=== PATIENT | male | born 1935 | race Caucasian/White ===

== ENCOUNTER 2017-09-20 16:37 | Inpatient (IN) | payer OTHER, BC ==
[~2017-09-20] VITALS: Ht 175.3 cm; Wt 79.4 kg
[2017-09-20] VITALS (19 sets, daily range): BP systolic 100–174; BP diastolic 39–69
--- NOTE | ~2017-09-20 | HC ---
[facility] [place] [address] CONSULTATION Name: SHANE FIGUEROA Room #: 244-P [facility] IN M.R.#: [id number] Admission: 09/20/17 Attend Phys: Hector Banda Discharge: Date of : 35 Report #: [id number] THIS REPORT FOR: //name// CC: Shane Holder DO Hector Molina MD DATE OF SERVICE: 09/20/[address] Shane Holder and Dr. Hector Banda. He is also a patient of Dr. Shalom Molina. CHIEF COMPLAINT: This is a very pleasant 82-year-old white male who came to the Emergency Room with complaints of a large volume hematemesis several times. The patient is suffering from dementia and his and he both try to give me the history of the past few hours. Apparently, the patient began vomiting blood this afternoon and was brought to the hospital for further evaluation at about 4:45 p.m. He was stable at the time of arrival and he denies any syncopal events prior to admission. He has a significant past medical history. Patient's states that he has not been eating or behaving as he normally does and has been having a lot of gastroesophageal reflux, hiccups and belching. The patient felt nauseous earlier today and then began vomiting. After the first small amount of hematemesis, the patient's called the ambulance that came immediately and before he got out the door, he had vomited 3 more times large amounts of bloody emesis. Apparently, he has not had any further hematemesis and/or any melena since he has arrived at the Emergency Room. PAST MEDICAL HISTORY: Significant for some significant coronary artery disease. He had a stent placed in 2006 and then again in 2016, he developed another LAD lesion that required a stent. Apparently, there was a problem with the placement of this stent initially and it needed to have another stent placement a little bit later on after he developed an acute coronary syndrome. He has been on Effient ever since then. MEDICATIONS: He also takes metoprolol, lisinopril, takes Regular and NPH insulin, Effient, Lipitor, aspirin. According to the chart, he also takes colchicine for gout and Seroquel. ALLERGIES: No known drug allergies. PAST MEDICAL HISTORY: Significant for dementia. He has had coronary artery disease and developed acute coronary syndrome and has had a total of 3 coronary [facility] [address] [place] [address] CONSULTATION Name: SHANE FIGUEROA Room #: 244-P [facility] IN [facility]#: [id number] Admission: 09/20/17 Attend Phys: Hector Banda Discharge: Date of : 35 Report #: [id number] stents placed. He has a history of diabetes mellitus, hypertension, hyperlipidemia, arthritis, and gout. SOCIAL HISTORY: He does not smoke. He drinks less than one alcoholic beverage per day. He only drinks perhaps one alcoholic beverage 3-4 times a week and as mentioned, he does not smoke. FAMILY HISTORY: There is no family history of colon polyps, colon cancer, Crohn's disease or ulcerative colitis. REVIEW OF SYSTEMS: He denies any dysphagia or odynophagia, but he does have gastroesophageal reflux recently and his appetite has not been as good. His thinks as well. He has had a lot of hiccups and belching. He denies any history of hiatal hernia or peptic ulcer disease since appetite is decreased. He denies any hematochezia or melena, but he has had hematemesis. His stools have been normal and brown. They have not been black or bloody. He denies any abdominal pain. He has had no further nausea or vomiting at this time. His weight has been stable overall. PHYSICAL EXAMINATION: GENERAL: Reveals a well-developed, well-nourished 82-year-old white male who is in no apparent distress at the time I examined him who is awake, alert, oriented x 4 and cooperative and pleasant to converse with. HEENT: He is normocephalic and atraumatic and anicteric. HEART: Heart rate and rhythm are regular with a normal S1 and S2. LUNGS: Clear bilaterally. ABDOMEN: Soft. Bowel sounds are present in all 4 quadrants. There is no palpable organomegaly or mass. There is no tenderness, rebound or guarding. EXTREMITIES: Warm and dry. No peripheral cyanosis, clubbing or edema. NEUROLOGIC: The patient is somewhat forgetful, but he does remember a lot of his past medical history and is able to tell me quite a bit. His is very helpful in this interview. Neurologically, he appears grossly intact without any lateralizing signs. SIGNIFICANT LABORATORY DATA: Sodium 134, potassium 4.4, chloride 101, CO2 of 16, BUN 67, creatinine 1.8, glucose was 566. Liver enzymes are all normal. Magnesium is a little low at 1.7, albumin 3.2, ammonia is pending. Troponins are normal. INR is 1.1. White blood cell count 16.2, hemoglobin is 10.2, hematocrit 29.3, indices are all normal as is the RDW, platelets are 242,000. Urine shows 3+ glucose, trace ketones, and 2+ blood. There is mucus in the urine and there are a few crystals seen. The patient has a history of gout. CT of the head without contrast shows no acute intracranial abnormalities. There is mild cerebral and cerebellar volume loss, atherosclerosis and mild chronic central white matter microvascular ischemia. There is an old linear infarction extending into the right external capsule without significant change. [facility] [address] [place] [address] CONSULTATION Name: SHANE FIGUEROA Room #: 244-P [facility] IN ..#: [id number] Admission: 09/20/17 Attend Phys: Hector Banda Discharge: Date of : 35 Report #: [id number] IMPRESSION: 1. Acute upper gastrointestinal bleed with hematemesis. Hemoglobin was 10.2 on arrival. 2. History of significant coronary artery disease with coronary artery stents and history of acute coronary syndrome. 3. Cerebrovascular accident seen on CT of the head. 4. Worsening gastroesophageal reflux. 5. Decreased appetite recently. 6. Dementia. 7. Status post left hip replacement. 8. Coronary artery disease with stents. 9. Diabetes mellitus. 10. Hypertension. 11. Hyperlipidemia. 12. Gout with arthritis. 13. 2+ blood in his urine. DISCUSSION AND RECOMMENDATION: We will continue his Protonix drip as ordered in the Emergency Room. We will monitor his H and H q. 6 hours and transfuse if his hemoglobin gets below possibly 7. However, he may not tolerate hemoglobin below 8. We will have to see how he does clinically. If he has no further hematemesis tonight, we will not give him any platelets, but if he does start bleeding again or drops his hemoglobin significantly or becomes unstable in any way, we will proceed with platelet transfusion. I have discussed his case with Dr. Tapia who is on-call for Dr. Shalom Molina and he is in agreement with this approach to the patient's situation. I have placed a Cardiology consult for them tomorrow. We will send urine for culture and sensitivity. We will give him some ice chips, some clear liquids tonight. He will be in ICU. We will hold his Effient and aspirin for now. Thank you very much once again for allowing me to participate in his care, Dr. Holder and Dr. Banda. <ELECTRONICALLY SIGNED> By: Kylee Cahrles DO 09/21/17 0701 2111 0403 Kylee Charles DO /nt
--- NOTE | ~2017-09-20 | EKG ---
[place] [address] [address] [place] [address] ELECTROCARDIOGRAM REPORT Name: SHANE FIGUEROA Room #: 244-P ADM IN M.R.#: [id number] Admission: 09/20/17 Attend Phys: Hector Banda Discharge: Date of : 35 Report #: [id number] THIS REPORT FOR: //name// [facility] ED Test Date: 2017-09-20 Test Time: 16:47:26 Pat Name: SHANE FIGUEROA Department: Room: 244 Gender: M Marketing Intern: LUÍS : 1935 Requested By: Miky Kenney Order Number: [id number] MD: Johnnie Mcdonald Measurements Intervals [place] Rate: 94 P: 66 DC: 149 QRS: 4 QRSD: 93 T: 47 QT: 371 QTc: 464 Interpretive Statements Sinus rhythm Abnormal inferior Q waves Compared to ECG 02/17/2016 07:01:21 Sinus bradycardia no longer present Electronically Signed On 09-21-2017 8:08:36 MACHINE SETTER [employer] by Johnnie Mcdonald [email or web address] <ELECTRONICALLY SIGNED> By: Johnnie Mcdonald MD, [facility] 09/21/17 0808 46 46 Johnnie Mcdonald MD, [facility] /EPI
--- NOTE | ~2017-09-20 | EKG ---
[place] [address] [facility] [place] [address] ELECTROCARDIOGRAM REPORT Name: SHANE FIGUEROA Room #: 244-P ADM IN M.R.#: [id number] Admission: 09/20/17 Attend Phys: Hector Banda Discharge: Date of : 35 Report #: [id number] THIS REPORT FOR: //name// [facility] ED Test Date: 2017-09-20 Test Time: 17:50:14 Pat Name: SHANE FIGUEROA Department: Room: 244 Gender: M [employer] Artistic Director: JESSICA : 1935 Requested By: Kate Brunner Order Number: [id number] MD: Johnnie Mcdonald Measurements Intervals [place] Rate: 87 P: [place]: QRS: 4 QRSD: 112 T: 45 QT: 394 QTc: 474 Interpretive Statements Atrial fibrillation Nonspecific ST segment abnormality Compared to ECG 02/17/2016 07:01:21 Sinus bradycardia no longer present Electronically Signed On 09-21-2017 8:09:39 OUTSIDE RESIDENTIAL SALES PROFESSIONAL by Johnnie Mcdonald [email or web address] <ELECTRONICALLY SIGNED> By: Johnnie Mcdonald MD, [facility] 09/21/17 0809 1750 175 Johnnie Mcdonald MD, FACC /EPI
--- NOTE | ~2017-09-20 | EKG ---
[address] [place] [address] ELECTROCARDIOGRAM REPORT Name: SHANE FIGUEROA Room #: 244- ADM IN M.R.#: [id number] Admission: 09/20/17 Attend Phys: Hector Banda Discharge: Date of : 35 Report #: [id number] THIS REPORT FOR: //name// [facility] Test Date: 2017-09-21 Test Time: 15:19:50 Pat Name: SHANE FIGUEROA Department: Room: 244 Gender: M Insurance Defense Attorney: Marlen CATES : 1935 Requested By: Hector Banda Order Number: [id number] MD: Johnnie Mcdonald Measurements Intervals [place] Rate: 103 P: 50 [place]: 156 QRS: 0 QRSD: 89 T: 57 QT: 360 QTc: 471 Interpretive Statements Sinus tachycardia Borderline repolarization abnormality Compared to ECG 09/21/2017 01:45:06 No significant change was found Electronically Signed On 09-21-2017 17:20:31 GREY INSPECTOR by Johnnie Mcdonald [email or web address] <ELECTRONICALLY SIGNED> By: Johnnie Mcdonald MD, [facility] 09/21/17 1720 1519 1519 Johnnie Mcdonald MD, [facility] /EPI
--- NOTE | ~2017-09-20 | P ---
[facility] [place] [address] [place] [address] PROCEDURE REPORT Name: SHANE FIGUEROA Room #: 353-P [facility] IN ..#: [id number] Admission: 09/20/17 Attend Phys: Hector Banda Discharge: 09/23/17 Date of : 35 Report #: [id number] THIS REPORT FOR: //name// CC: Shane GALDAMEZ DATE OF SERVICE: 09/22/2017 PROCEDURE PERFORMED: Upper endoscopy. HISTORY OF PRESENT ILLNESS: The patient is an 82-year-old male with a history of upper GI bleed, recent hematemesis, was admitted on 09/20/2017. The patient had been on aspirin and Effient, which has now been held. He was transfused 1 unit. His hemoglobin at this time is 7.1. Plan is for upper endoscopy. DESCRIPTION OF PROCEDURE: The risks and benefits of the procedure were explained to the patient, those risks including but not limited to bleeding, perforation, the risk of sedation. His family understood these risks and gave informed consent. Sedation was given using propofol per anesthesia. Next, using a standard FreshTn upper endoscope, the scope was placed in the patient's mouth and advanced under direct vision through the esophagus, stomach and into the second portion of the duodenum. The larynx showed a small nodule on his vocal cord, but otherwise normal. The upper esophagus was normal; however, in the mid and distal esophagus, he had severe grade D erosive esophagitis. There was no active bleeding. Overall, the gastric mucosa was normal. The pylorus was normal and patent. The duodenal bulb, first and second portion were all normal. The scope was then withdrawn and the procedure terminated. The patient tolerated the procedure well. IMPRESSION: 1. Severe grade D erosive esophagitis, likely source of recent upper gastrointestinal bleed. No active bleeding at this time. 2. Otherwise, normal upper endoscopy. RECOMMENDATIONS: 1. We will continue b.i.d. PPI therapy. 2. We will add liquid Carafate for the next 2 weeks. 3. Would recommend repeating upper endoscopy in 2 months' time to rule out the possibility of Pollard's esophagus. [address] [address] PROCEDURE REPORT Name: SHANE FIGUEROA Room #: 353-P [facility] IN M.R.#: [id number] Admission: 09/20/17 Attend Phys: Hector Banda Discharge: 09/23/17 Date of : 35 Report #: [id number] Thank you for allowing me to participate in his care. <ELECTRONICALLY SIGNED> By: Arash Hassan MD 09/23/170 1238 0689 Arash Hassan MD /nt
--- NOTE | ~2017-09-20 | 2DMMODE ---
[facility] [place] [address] 2 D/M-MODE ECHOCARDIOGRAM Name: SHANE FIGUEROA Room #: 244-P ADM IN .R.#: [id number] Admission: 09/20/17 Attend Phys: Hector Hopkins Discharge: Date of : 35 Date of Service: 09/21/17 1219 Report #: [id number] THIS REPORT FOR: //name// APPROVED REPORT Study performed: 09/21/2017 09:46:42 EXAM: Comprehensive 2D, Doppler, and color-flow Echocardiogram Patient Location: ICU Room #: [facility] Status: routine BSA: 1.99 HR: 73 bpm BP: 124/50 mmHg Rhythm: NSR Other Information Study Quality: Adequate Indications Elevated troponin. Hx: CAD, stent, HTN, HLP, DM 2D Dimensions RVDd: 34.67 mm IVSd: 10.92 (7-11mm) LVOT Diam: 22.80 (18-24mm) LVDd: 41.28 mm PWd: 9.81 (7-11mm) Ascending Ao: 36.96 (22-36mm) Aortic Root: 36.17 mm Volumes Left Atrial Volume (Systole) Single Plane 4CH: 50.35 mL Single Plane 2CH: 50.08 mL LA ESV Index: 27.00 mL/m2 Aortic Valve AoV Peak Ranjan.: 2.59 m/s AO Peak Gr.: 26.86 mmHg LVOT Max P.70 mmHg AO Mean Gr.: 16.50 mmHg AO V2 Mean: 1.90 m/s LVOT Max V: 1.19 m/s AO V2 VTI: 50.83 cm KAYLA Vmax: 1.88 cm2 Mitral Valve E/A Ratio: 0.7 MV Decel. Time: 399.56 ms [facility] [address] [place] [address] 2 D/M-MODE ECHOCARDIOGRAM Name: SHANE FIGUEROA Room #: 244-[facility] IN ..#: [id number] Admission: 09/20/17 Attend Phys: Hector Hopkins Discharge: Date of : 35 Date of Service: 09/21/17 1219 Report #: [id number] MV E Max Ranjan.: 0.93 m/s MV A Ranjan.: 1.33 m/s MV PHT: 115.87 ms IVRT: 72.66 ms Pulmonary Valve PV Peak Ranjan.: 1.54 m/s PV Peak Gr.: 9.47 mmHg Pulmonary Vein P Vein S: 0.79 m/s P Vein A: 0.36 m/s P Vein D: 0.44 m/s P Vein A Dur.: 106.1 msec P Vein S/D Ratio: 1.80 Tricuspid Valve RAP Estimate: 5.00 mmHg Left Ventricle The left ventricle is normal size. There is normal LV segmental wall motion. Mild basal septal hypertrophy is present. Left ventricular systolic function is normal. LVEF is 60-65%. Mild diastolic dysfunction is present (impaired relaxation pattern). Right Ventricle The right ventricle is normal size. The right ventricular systolic function is normal. Atria The left atrium size is normal. The right atrium size is normal. Aortic Valve Aortic valve is moderately calcified. Mild aortic regurgitation. There is mild valvular aortic stenosis. Calculated aortic valve area is 1.9 cm2 with maximum pressure gradient of 27 mmHg and mean pressure gradient of 17 mmHg. Mitral Valve Mild mitral annular calcification. Trace mitral regurgitation. No evidence of mitral valve stenosis. Tricuspid Valve The tricuspid valve is normal in structure. There is no tricuspid valve regurgitation noted. Unable to assess PA pressure. Pulmonic Valve The pulmonary valve is normal in structure. Trace pulmonic [facility] [address] [place] [address] 2 D/M-MODE ECHOCARDIOGRAM Name: SHANE FIGUEROA Room #: 244-P [facility] IN [facility]#: [id number] Admission: 09/20/17 Attend Phys: Hector Hopkins Discharge: Date of : 35 Date of Service: 09/21/17 1219 Report #: [id number] regurgitation. Great Vessels The aortic root is normal in size. The ascending aorta is normal in size. IVC is normal in size and collapses >50% with inspiration. Pericardium There is no pericardial effusion. <Conclusion> Left ventricular systolic function is normal. There is normal LV segmental wall motion. LVEF is 60-65%. Mild diastolic dysfunction Aortic valve is moderately calcified. Mild valvular aortic stenosis with a valve area of 1.9 cm2 (peak pressure gradient of 27 mmHg, mean pressure gradient of 17 mmHg). Mild insufficiency Mild mitral annular calcification. Trace mitral regurgitation. Pulmonary artery pressure could not be reliably ascertained There is no pericardial effusion. <ELECTRONICALLY SIGNED> By: Johnnie Mcdonald MD, FACC 09/21/17 121 18 18 Johnnie Mcdonald MD, FACC /INF
--- NOTE | ~2017-09-20 | EKG ---
[address] [place] [address] ELECTROCARDIOGRAM REPORT Name: SHANE FIGUEROA Room #: 244-P ADM IN M.R.#: [id number] Admission: 09/20/17 Attend Phys: Hector Banda Discharge: Date of : 35 Report #: [id number] THIS REPORT FOR: //name// [facility] Test Date: 2017-09-21 Test Time: 01:45:06 Pat Name: SHANE FIGUEROA Department: Room: 244 Gender: M Customer Service Assistant: Aden Powell : 1935 Requested By: Claudette Trinidad Order Number: [id number] MD: Johnnie Mcdonald Measurements Intervals [place] Rate: 103 P: 63 W[place]: 148 QRS: 6 QRSD: 87 T: 257 QT: 335 QTc: 439 Interpretive Statements Sinus tachycardia Nonspecific ST and T wave abnormality Compared to ECG 02/17/2016 07:01:21 No significant change was found Electronically Signed On 09-21-2017 8:14:58 [employer] by Johnnie Mcdonald [email or web address] <ELECTRONICALLY SIGNED> By: Johnnie Mcdonald MD, [facility] 09/21/17 0814 0145 014 Johnnie Mcdonald MD, [facility] /EPI
[~2017-09-20 16:37] MED LIST: AMOXICILLIN 50500 MG PO; ASPIR 8181 MG PO; ASPIR-TRIN325 MG PO; ASPIRIN325 PO; ATORVASTATIN CA40 MG PO; AUGMENTIN 875875 MG PO; COLCHICINE0.6 MG PO; EFFIENT10 MG PO; HUMULIN N100 UNIT/1 SUBQ; HUMULIN R100 UNIT/M SUBQ; KRILL OIL 1,001 EAC1 PO; KRILL OIL500 MG PO; LIPITOR 20 MG T20 M1 PO; LISINOPRIL10 MG PO; LISINOPRIL20 MG PO; METOPROLOL SUCC50 MG PO; NOVOLIN N100 UNIT/1 SUBQ; NOVOLIN R100 UNIT/1 SUBQ; NOVOLOG100 UNIT/1; PREVACID15 MG PO; PREVACID30 MG PO; REGULAR INSULIN SUBQ; SEROQUEL 25 MG25 M1 PO; THERA M PLUS T1 EAC2 PO; TOPROL XL25 MG PO
[2017-09-20 16:58] LABS: ABSOLUTE NEUTROPHILS 12.7 thou/uL (1.4-8.2); BASOPHILS 0.4 % (0.0-2.0); EOSINOPHILS 0.1 % (0.0-3.0); HEMATOCRIT 29.8 % (42.0-52.0); HEMOGLOBIN 10.2 gm/dL (14.0-18.0); LYMPHOCYTES 15.7 % (24.0-44.0); MCH 32.2 pg (26.0-34.0); MCHC 34.2 g/dL (28.0-37.0); MCV 94.2 fL (80.0-100.0); MONOCYTES 5.1 % (1.0-8.0); PLATELET COUNT 242 thou/uL (150-400); POLYS 78.7 % (36.0-66.0); RBC 3.16 mil/uL (4.50-6.00); RDW 13.9 % (10.5-14.5); WBC 16.2 thou/uL (4.0-11.0)
[2017-09-20 17:09] LABS: ANION GAP 17 mmol/L (7-16); BUN 67 mg/dL (7-18); CHLORIDE 101 mmol/L (98-107); CO2 16 mmol/L (21-32); CREATININE 1.8 mg/dL (0.7-1.3); INR 1.1; POTASSIUM 4.4 mmol/L (3.5-5.1); PROTIME 11.5 Seconds (9.3-11.4); SODIUM 134 mmol/L (136-145)
[2017-09-20 17:14] LABS: ALBUMIN 3.2 g/dL (3.4-5.0); LIPASE 214 U/L (73-393); SGOT 13 U/L (15-37); SGPT 23 U/L (30-65); TOTAL BILIRUBIN 0.7 mg/dL (<0.1-1.0); TROPONIN-I < 0.04 ng/mL (<0.06)
[2017-09-20 17:19] LABS: GLUCOSE 566 mg/dL (74-106)
[2017-09-20 18:49] LABS: URINE BILIRUBIN NEGATIVE (Negative); URINE BLOOD 2+ (Negative); URINE CLARITY CLEAR; URINE GLUCOSE-RANDOM* 3+ (Negative); URINE KETONES TRACE (Negative); URINE LEUKOCYTES NEGATIVE (Negative); URINE NITRITE NEGATIVE (Negative); URINE PROTEIN (DIPSTICK) NEGATIVE (Negative); URINE SPECIFIC GRAVITY 1.015 (1.005-1.035); URINE UROBILINOGEN 0.2 E.U./dl (0.2-1.0)
[2017-09-20 18:50] LABS: URINE COLOR STRAW
[2017-09-20 19:09] LABS: BACTERIA None Seen /HPF (None Seen); CRYSTALS None Seen /LPF (None Seen); HYALINE CASTS 0-3 Few /LPF (None Seen); MUCUS 0-3 Light strn/LPF (None Seen); SQUAMOUS 0-3 Few /LPF (0-3); URINE RBC 0-2 Rare /HPF (0-2); URINE WBC 0-5 Rare /HPF (0-5)
[2017-09-20 22:17] LABS: HEMATOCRIT 25.5 % (42.0-52.0); HEMOGLOBIN 8.9 gm/dL (14.0-18.0)
[2017-09-20 22:26] LABS: CALCIUM 8.7 mg/dL (8.5-10.1); CREATININE 1.7 mg/dL (0.7-1.3); POTASSIUM 5.3 mmol/L (3.5-5.1)
[2017-09-21] VITALS (60 sets, daily range): BP systolic 101–164; BP diastolic 48–114
[2017-09-21 04:12] LABS: GLYCOHEMOGLOBIN (HGB A1C) 7.7 % (4.8-5.6)
[2017-09-21 06:26] LABS: HEMATOCRIT 24.8 % (42.0-52.0); HEMOGLOBIN 8.6 gm/dL (14.0-18.0)
[2017-09-21 06:42] LABS: ALBUMIN 3.2 g/dL (3.4-5.0); CALCIUM 8.7 mg/dL (8.5-10.1); CREATININE 1.5 mg/dL (0.7-1.3); MAGNESIUM 1.6 mg/dL (1.8-2.4); PHOSPHORUS 2.7 mg/dL (2.5-4.9); TROPONIN-I 0.27 ng/mL (<0.06)
[2017-09-21 12:04] LABS: HEMATOCRIT 20.8 % (42.0-52.0); HEMOGLOBIN 7.3 gm/dL (14.0-18.0)
[2017-09-21 21:10] LABS: HEMATOCRIT 22.2 % (42.0-52.0); HEMOGLOBIN 7.7 gm/dL (14.0-18.0)
[2017-09-22] VITALS (12 sets, daily range): BP systolic 112–192; BP diastolic 46–87
[2017-09-22 04:58] LABS: HEMATOCRIT 20.4 % (42.0-52.0); HEMOGLOBIN 7.1 gm/dL (14.0-18.0); MCH 31.1 pg (26.0-34.0); RBC 2.29 mil/uL (4.50-6.00); RDW 16.8 % (10.5-14.5)
[2017-09-22 05:02] LABS: MCV 88.9 fL (80.0-100.0)
[2017-09-22 05:27] LABS: ALBUMIN 2.7 g/dL (3.4-5.0); CALCIUM 7.9 mg/dL (8.5-10.1); CREATININE 1.1 mg/dL (0.7-1.3); PHOSPHORUS 1.8 mg/dL (2.5-4.9); POTASSIUM 4.4 mmol/L (3.5-5.1)
[2017-09-23 04:03] VITALS: BP 123/49
[2017-09-23 05:32] LABS: HEMATOCRIT 22.1 % (42.0-52.0); HEMOGLOBIN 7.8 gm/dL (14.0-18.0); MCH 31.4 pg (26.0-34.0); MCHC 35.5 g/dL (28.0-37.0); MCV 88.3 fL (80.0-100.0); RBC 2.5 mil/uL (4.50-6.00); RDW 16.2 % (10.5-14.5)
[2017-09-23 05:36] LABS: PROTIME 10.7 Seconds (9.3-11.4)
[2017-09-23 05:46] LABS: CALCIUM 8.2 mg/dL (8.5-10.1); CREATININE 1.1 mg/dL (0.7-1.3); POTASSIUM 3.8 mmol/L (3.5-5.1); TOTAL BILIRUBIN 0.6 mg/dL (<0.1-1.0); TOTAL PROTEIN 5.7 g/dL (6.4-8.2)
[2017-09-23 07:06] VITALS: BP 154/64
[2017-09-23 07:43] VITALS: BP 125/52
[2017-09-23] MEDS ORDERED: PANTOPRAZOLE SO40 M1 PO (09:15)
[2017-09-23] MEDS ORDERED: CARAFATE 11 GM/10 M1 PO (09:15)
[2017-09-23 09:38] VITALS: BP 130/71
[2018-01-11] MEDS ORDERED: OMEPRAZOLE 20 M20 M1 PO (11:54)
== END 2017-09-23 10:05 | disposition home or self-care (01) | DRG 377 ==
LOC: ER 16:37 → EROBS 17:44 → ICU 17:44 → 3W 09-22 18:13
PROVIDERS: Hospitalist; Physician Assistant
PROC: 30233N1 Transfusion of Nonautologous Red Blood Cells into Peripheral Vein, Percutaneous Approach (ICD-10-PCS; 2017-09-21)
PROC: 0DJ08ZZ Inspection of Upper Intestinal Tract, Via Natural or Artificial Opening Endoscopic (ICD-10-PCS; principal; 2017-09-22)
DX: K92.2 Gastrointestinal hemorrhage, unspecified (principal); N17.0 Acute kidney failure with tubular necrosis; E11.10 Type 2 diabetes mellitus with ketoacidosis without coma; D62 Acute posthemorrhagic anemia; M10.9 Gout, unspecified; I10 Essential (primary) hypertension; K92.0 Hematemesis; E83.42 Hypomagnesemia; I25.10 Atherosclerotic heart disease of native coronary artery without angina pectoris; E78.00 Pure hypercholesterolemia, unspecified; F03.90 Unspecified dementia, unspecified severity, without behavioral disturbance, psychotic disturbance, mood disturbance, and anxiety; E78.5 Hyperlipidemia, unspecified; Z96.642 Presence of left artificial hip joint; K21.0 Gastro-esophageal reflux disease with esophagitis; I70.1 Atherosclerosis of renal artery; Z86.73 Personal history of transient ischemic attack (TIA), and cerebral infarction without residual deficits; Z85.828 Personal history of other malignant neoplasm of skin; Z95.5 Presence of coronary angioplasty implant and graft; Z79.01 Long term (current) use of anticoagulants
CPT/HCPCS: 10078; 10779; 62110

== ENCOUNTER → 2017-11-20 | Outpatient (CLI) | payer OTHER, BC ==
[~2017-11-20] VITALS: Ht 175.3 cm; Wt 83.9 kg
[~2017-11-20] MED LIST changes: +CARAFATE 11 GM/10 M1 PO; +PANTOPRAZOLE SO40 M1 PO
--- NOTE | ~2017-11-20 | P ---
[facility] [place] [address] PROCEDURE REPORT Name: SHANE FIGUEROA Room #: [facility]#: [id number] Admission: 11/20/17 Attend Phys: Arash Garibay Discharge: Date of : 35 Report #: [id number] THIS REPORT FOR: //name// CC: Arash MENDIOLAGELSivan Doyle DATE OF SERVICE: 11/20/2017 PROCEDURE PERFORMED: Upper endoscopy with biopsies. HISTORY OF PRESENT ILLNESS: The patient is an 82-year-old male with a previous history of upper GI bleed, underwent an upper endoscopy by myself on 09/22/2017 showing severe grade D erosive esophagitis. He was placed on b.i.d. PPI therapy and Carafate and the plan was to leave the patient on PPI therapy indefinitely. However, he has not been taking this. He took the Carafate for 2 weeks and discontinued this as well. He denies any dysphagia or significant heartburn. No further hiccups, but he does report increased belching. The plan was for repeat upper endoscopy to rule out the possibly of Pollard's. DESCRIPTION OF PROCEDURE: The risks and benefits of the procedure were explained to the patient, those risks including but not limited to bleeding, perforation, the risk of sedation. He understood these risks and gave informed consent. Sedation was given using propofol per anesthesia. Next, using a standard Passmann upper endoscope, the scope was placed in the patient's mouth and advanced under direct vision through the esophagus, stomach and into the second portion of the duodenum. The larynx was normal in appearance. The upper and mid esophagus was normal. Once again in the distal esophagus, there was severe grade D erosive esophagitis. Several biopsies were obtained at the distal esophagus to rule out the possibility of Pollard's, but again Pollard's could be underneath the esophagitis as well. Upon entering the stomach, a small hiatal hernia was noted. Overall, the gastric mucosa was normal. The pylorus was normal and patent. The duodenal bulb, first and second portion were all normal. The scope was then withdrawn and the procedure terminated. The patient tolerated the procedure well. IMPRESSION: 1. Severe grade D erosive esophagitis. 2. Small hiatal hernia. RECOMMENDATIONS: 1. Await biopsy results. 2. I explained to the patient and his and family today. He needs to stay on b.i.d. PPI therapy indefinitely. [facility] [address] [place] [address] PROCEDURE REPORT Name: SHANE FIGUEROA Room #: [facility]#: [id number] Admission: 11/20/17 Attend Phys: Arash Garibay Discharge: Date of : 35 Report #: [id number] Thank you for allowing me to participate in his care. <ELECTRONICALLY SIGNED> By: Arash Hassan MD 11/21/17 0809 1005 1248 Arash Hassan MD /thor
--- NOTE | ~2017-11-20 | S ---
[facility] [place] [address] SURGICAL PATH RPT PROCEDURE Name: SHANE GONZALEZ Room #: REG [facility] M..#: [id number] Admission: 11/20/17 Date of : 35 Discharge: Report #: [id number] Path Case #: [id number] PATHOLOGY REPORT COLLECTION DATE: 11/20/2017 RECEIVED DATE: 11/20/2017 SUBMITTING PHYS: Dr. Arash Hassan OTHER PHYS: Dr. Shane Holder SPECIMEN(S) RECEIVED: A.Bx distal esophagus * * * * * * * * * * * * FINAL DIAGNOSIS: "BX distal esophagus", biopsy: - Esophageal squamous mucosa and gastric cardia-type mucosa with reactive changes including foveolar hyperplasia, edema, and acute and chronic inflammation; no intestinal metaplasia or dysplasia seen. (CLW:temo; 11/21/2017) PATHOLOGIST: Omaira Houston M.D. REPORT ELECTRONICALLY SIGNED BY: Omaira Houston M.D. DATE/TIME: 11/21/2017 22:28 * * * * * * * * * * * * GROSS PATHOLOGY: The specimen is received in formalin, labeled "Shane Gonzalez and biopsy distal esophagus rule out Pollard's", are two asher-muñoz soft tissues measuring 0.3 cm in greatest dimension each, entirely submitted in A1. (SWS; 11/20/2017) CLINICAL HISTORY: Esophagitis INITIAL CPT CODE(S): A; 66960 Professional services performed by [facility] at [facility] [address] [place] [address] Technical services performed by [facility] at [address] [place] [address], [address] [address]. [facility] [address] [place] [address] SURGICAL PATH RPT PROCEDURE Name: SHANE GONZALEZ Room #: REG [facility]#: [id number] Admission: 11/20/17 Date of : 35 Discharge: Report #: [id number] Path Case #: [id number] [facility] [address] [address] PHONE: [phone] DIRECTOR: Jeff Brandon M.D. * * * END OF REPORT * * *
== END | disposition home or self-care (01) ==
LOC: GI 07:52
DX: K22.10 Ulcer of esophagus without bleeding (principal); K44.9 Diaphragmatic hernia without obstruction or gangrene; G30.9 Alzheimer's disease, unspecified; F02.80 Dementia in other diseases classified elsewhere, unspecified severity, without behavioral disturbance, psychotic disturbance, mood disturbance, and anxiety; I10 Essential (primary) hypertension; Z95.5 Presence of coronary angioplasty implant and graft; K21.9 Gastro-esophageal reflux disease without esophagitis; E11.9 Type 2 diabetes mellitus without complications; Z86.73 Personal history of transient ischemic attack (TIA), and cerebral infarction without residual deficits; E78.5 Hyperlipidemia, unspecified
CPT/HCPCS: 62110; 62900

== ENCOUNTER → 2018-01-12 | Outpatient (CLI) | payer OTHER, BC ==
[~2018-01-12] VITALS: Ht 177.8 cm; Wt 81.6 kg
[~2018-01-12] MED LIST changes: +OMEPRAZOLE 20 M20 M1 PO
--- NOTE | ~2018-01-12 | P ---
[facility] [place] [address] PROCEDURE REPORT Name: SHANE FIGUEROA Room #: REG [facility]#: [id number] Admission: 01/12/18 Attend Phys: Arash Garibay Discharge: Date of : 35 Report #: [id number] THIS REPORT FOR: //name// CC: Arash Holder DATE OF SERVICE: 01/12/2018 PROCEDURE PERFORMED: Upper endoscopy with biopsies. HISTORY OF PRESENT ILLNESS: The patient is an 82-year-old male with a previous history of upper GI bleed, underwent an upper endoscopy by myself on 09/22/2017, showing severe grade D erosive esophagitis. He was placed on b.i.d. PPI therapy and Carafate and the plan was to leave the patient on PPI therapy indefinitely. He then had a repeat upper endoscopy on 11/20/2017. Unfortunately, the patient was not taking any PPI at that time. Repeat upper endoscopy showed again severe grade D erosive esophagitis and a small hiatal hernia. The patient has now been on Prilosec 20 mg on a daily basis. He denies any dysphagia. The plan is for repeat upper endoscopy to rule out the possibility of Pollard's esophagus. DESCRIPTION OF PROCEDURE: The risks and benefits of the procedure were explained to the patient and his , those risks including but not limited to bleeding, perforation, the risk of sedation. They understood these risks and gave informed consent. Sedation was given using propofol per anesthesia. Next, using a standard Olympus upper endoscope, the scope was placed in the patient's mouth and advanced under direct vision through the esophagus, stomach and into the second portion of the duodenum. On the right vocal cord, there appears to be a small lesion. The upper and mid esophagus was normal. In the distal esophagus, no further esophagitis was noted; however, there does appear to be a short segment of Pollard's, therefore, biopsies were obtained. No stricture was noted. Upon entering the stomach, a small hiatal hernia was once again noted. Overall, the gastric mucosa was normal. The pylorus was normal and patent. The duodenal bulb, first and second portion were all normal. The scope was then withdrawn and the procedure terminated. The patient tolerated the procedure well. IMPRESSION: 1. Small lesion on the right vocal cord, recommend ENT evaluation. 2. 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 3. Small hiatal hernia. 4. Otherwise, normal upper endoscopy. RECOMMENDATIONS: 1. Await biopsy results. 2. Continue daily PPI therapy indefinitely. 3. Recommend ENT evaluation for vocal cord lesion. [address] [address] PROCEDURE REPORT Name: SHANE FIGUEROA Room #: REG [facility]#: [id number] Admission: 01/12/18 Attend Phys: Arash Garibay Discharge: Date of : 35 Report #: [id number] Thank you for allowing me to participate in his care. <ELECTRONICALLY SIGNED> By: Arash Hassan MD 01/13/18 0931 0902 1004 Arash Hassan MD /nt
--- NOTE | ~2018-01-12 | PATH ---
[facility] [address] [place] [address] PATHOLOGY RPT PROCEDURE Name: SHANE GONZALEZ Room #: REG [facility] Rogers.#: [id number] Admission: 01/12/18 Date of : 35 Discharge: Report #: [id number] Path Case #: [id number] [facility] Accession Number: [id number] . 01 Material submitted: . BX DISTAL SONALI R/O BARRETTS . 01 Clinical history: . 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 02 Diagnosis: Gastroesophageal mucosa, distal esophagus, rule out Pollard's, endoscopic biopsy: - Gastric fundic-type mucosa with moderate chronic inflammation. - Negative for intestinal metaplasia or dysplasia. - Squamous mucosa with mild esophagitis. (IUV:mgr; 01/15/18) QRQ/01/15/2018 . 02 Electronically signed: . Mimi Dickson MD, Pathologist NPI- [id number] . 01 Gross description: . The specimen is received in formalin, labeled "Shane Gonzalez, BX distal esophagus" and consists of 2 translucent fragments of asher soft tissue measuring 0.4 x 0.3 x 0.1 cm and 0.3 x 0.2 x 0.1 cm. They are entirely submitted in A1. (SDY; 01/12/2018) SYU/SYU . 02 Pathologist provided ICD-10: K20.8 . 02 CPT . 583022 Performed at: [address], [place] [id number] MD Toño Siu MD Phone: [phone] Performed at: [address] [id number] MD Mimi Dickson MD Phone: [phone]
== END | disposition home or self-care (01) ==
LOC: GI 07:37
DX: K21.0 Gastro-esophageal reflux disease with esophagitis (principal); K44.9 Diaphragmatic hernia without obstruction or gangrene; J38.3 Other diseases of vocal cords; I10 Essential (primary) hypertension; E11.9 Type 2 diabetes mellitus without complications; E78.5 Hyperlipidemia, unspecified; M10.9 Gout, unspecified; F02.80 Dementia in other diseases classified elsewhere, unspecified severity, without behavioral disturbance, psychotic disturbance, mood disturbance, and anxiety; G30.9 Alzheimer's disease, unspecified; Z95.5 Presence of coronary angioplasty implant and graft; Z85.828 Personal history of other malignant neoplasm of skin; Z79.4 Long term (current) use of insulin; Z96.642 Presence of left artificial hip joint; Z98.890 Other specified postprocedural states; Z86.73 Personal history of transient ischemic attack (TIA), and cerebral infarction without residual deficits; Z79.82 Long term (current) use of aspirin
CPT/HCPCS: 62110; 62900

== ENCOUNTER → 2019-12-24 | Outpatient (CLI) | payer OTHER, BC | LOC: SJCVCIMAG 09:06 | DX: I08.2 Rheumatic disorders of both aortic and tricuspid valves (principal); I11.9 Hypertensive heart disease without heart failure; I25.10 Atherosclerotic heart disease of native coronary artery without angina pectoris; E11.9 Type 2 diabetes mellitus without complications; I70.1 Atherosclerosis of renal artery; E78.00 Pure hypercholesterolemia, unspecified; E78.5 Hyperlipidemia, unspecified; F03.90 Unspecified dementia, unspecified severity, without behavioral disturbance, psychotic disturbance, mood disturbance, and anxiety ==

== ENCOUNTER 2020-05-19 16:35 | Inpatient (IN) | payer OTHER, BC ==
[~2020-05-19] VITALS: Ht 172.7 cm; Wt 76.0 kg
[2020-05-19 16:35] VITALS: BP 136/71
--- NOTE | 2020-05-19 17:01 | NUR ---
CHARAN CLYDE [phone]
[2020-05-19 17:03] LABS: URINE BILIRUBIN NEGATIVE (Negative); URINE BLOOD NEGATIVE (Negative); URINE CLARITY CLEAR; URINE COLOR YELLOW; URINE GLUCOSE-RANDOM* NEGATIVE (Negative); URINE KETONES NEGATIVE (Negative); URINE LEUKOCYTES-REFLEX NEGATIVE (Negative); URINE NITRITE-REFLEX NEGATIVE (Negative); URINE PROTEIN (DIPSTICK) TRACE (Negative); URINE UROBILINOGEN 0.2 E.U./dl (0.2-1.0)
[2020-05-19 17:12] LABS: ABSOLUTE NEUTROPHILS 4.3 thou/uL (1.4-8.2); BASOPHILS 0.7 % (0.0-2.0); EOSINOPHILS 1.7 % (0.0-3.0); HEMATOCRIT 37.2 % (42.0-52.0); HEMOGLOBIN 13.1 gm/dL (14.0-18.0); LYMPHOCYTES 34.3 % (24.0-44.0); MCH 32.4 pg (26.0-34.0); MCHC 35.3 g/dL (28.0-37.0); MCV 91.8 fL (80.0-100.0); PLATELET COUNT 271 thou/uL (150-400); POLYS 56.3 % (36.0-66.0); RBC 4.05 mil/uL (4.50-6.00); RDW 13.6 % (10.5-14.5); WBC 7.6 thou/uL (4.0-11.0)
[2020-05-19 17:22] LABS: CALCIUM 9.2 mg/dL (8.5-10.1); CREATININE 1.1 mg/dL (0.7-1.3); POTASSIUM 4.2 mmol/L (3.5-5.1)
[2020-05-19] MEDS ORDERED: OMEPRAZOLE 20 M20 M1 PO (17:32)
[2020-05-19 17:54] LABS: ALBUMIN 3.8 g/dL (3.4-5.0); DIRECT BILIRUBIN 0.1 mg/dL (<0.1-0.2); TOTAL BILIRUBIN 0.5 mg/dL (0.2-1.0)
--- NOTE | 2020-05-20 07:43 | EKG ---
[facility] [place] [address] ELECTROCARDIOGRAM REPORT Name: SHANE FIGUEROA Room #: REG [facility].#: [id number] Admission: 05/19/20 Attend Phys: Discharge: Date of : 35 Report #: [id number] THIS REPORT FOR: cc: Shane Holder James A. DO Lundgren, Craig H. MD [facility] ~ THIS REPORT FOR: //name// [facility] ED Test Date: 2020-05-19 Test Time: 18:23:41 Pat Name: SHANE FIGUEROA Department: Room: Gender: Vacuum Technician: [facility] : 1935 Requested By: Dom Delgado Order Number: [id number] MD: Johnnie Mcdonald Measurements Intervals Reeder Rate: 76 P: 10 PA: 166 QRS: -30 QRSD: 82 T: 2 QT: 384 QTc: 432 Interpretive Statements Sinus rhythm Atrial premature complex Left axis deviation Compared to ECG 09/21/2017 15:19:50 Atrial premature complex(es) now present Sinus tachycardia no longer present Electronically Signed On 05-20-2020 7:43:11 CDT by Johnnie Mcdonald [email or web address] <ELECTRONICALLY SIGNED> By: Johnnie Mcdonald MD, [facility] 05/20/20 0743 1823 1823 Johnnie Mcdonald MD, [facility] /EPI
[2020-05-20 10:03] VITALS: BP 122/48
[2020-05-20 17:50] VITALS: BP 120/69
--- NOTE | 2020-05-20 18:00 | NUR ---
Admission Note: Pt. arrived on unit 1010 w/no suitcase-just clothes he was wearing and personal valuables sent to the safe including $120.00, gold colored wedding band, wallet, Health insurance cards, cards for stents in heart, card with left hip replacement information. Patient provided little admission. Mosst of the information came from the nursing report sheet from ER and from his daughter. Admitting diagnosis: Major neurocognitive D/O. He was to go to a assisted and be with his . He became combative/belligerent and threatened to kill his daughter prior to coming to the ER. He tested negative for Covid. He was told he was brought here for medication adjustment. Admission process was long/protracted due to many needy patient needs. His guardian is his daughter Kelsie De Guzman #[phone]-who lives about an hour away. She was contacted for consents and prior medical/surgical information. She relays the best source is Dr. Holder from [facility]. Per ER nurse SHILPI. However patient said Penicillins. He received Geodon X 2 due to combativeness. He is on Insulin for DM, gout, HTN, Cardiac Stents, CVA, GERD, Left Hip replacement. Two years ago he had MRSA. Per ER he was up ad niharika and steady on his feet. Alert/oriented to self. Denies SI/HI/AH/VH. Dtr. reports he oversleeps. Dtr. says he has neglected his health for quite sometime--doesn't want hearing aides yet needs them. Self care deficit evidenced by thick, crusty old skin/dirt between his toes. He says he showers every day. His toenails are long/crooked/yellowed. he does not know know all his meds, nor did he have a list with him in his wallet. Patient intends to go to [place] or the [facility] instead of going into the assisted. Note the of 40 some years also has Dementia and may have very limited historian value. Should she need to be questioned the Guardian Kelsie suggests calling the niece to [facility] Loya for more information. Thus far patient has not been combative, belligerent, or acted out in any way. He does not want anyone telling him what to do. He is a retired [employer]. He does not see the advantage of getting the help, meals, socialization, activities that he and his could partake in at a nursing care facility. He was continent, though wanted nurse to walk with him to the bathroom. Having the bed in low position is a bit difficult for him to get up from. When the commode was moved closer to him he used it to push down on and get up from the bed. When changed into his Yellow t-shirt and socks and brief, his underwear had brown stain in it. He self-fed dinner. No c/o pain.
[2020-05-20 19:53] VITALS: BP 121/66
[2020-05-20] MEDS ORDERED: VITAMIN D325 MC1 PO (23:40)
[2020-05-20] MEDS ORDERED: VITAMIN B-121000 MC2 PO (23:42)
[2020-05-20] MEDS ORDERED: LISINOPRIL2.5 MG PO (23:44)
[2020-05-20] MEDS ORDERED: OMEPRAZOLE 20 M20 M1 PO (23:45)
--- NOTE | 2020-05-20 23:55 | NUR ---
Care of patient assumed at 1915: Patient sleeping in bed at start of shift. Patient [place] which appeared to frustrate him. Patient would throw his hands up in the air and say "oh, I don't know" several times during assessment. Alert and oriented to person and place. Pleasantly confused. Took HS medication without difficulty. Was able to remember that he was receiving insulin and blood sugar checks. Patient educated on fall risk precautions and has been compliant with using call álvarez before getting out of bed. Ate 100% HS snack. Denied pain and discomfort. Denies SI/HI/AH/VH. Patient was able to report that he was in the hospital but was not sure why. Patient reported that he was tired and politely asked if he could "just go to sleep". Oriented patient that it was night time which he appeared to be happy about. No combative or aggressive behaviors observed. Patient was able to fall asleep without difficulty and is resting quietly at this time.
[2020-05-21 07:41] VITALS: BP 122/84
--- NOTE | 2020-05-21 18:08 | NUR ---
Alert and orientated to person and situation but not to day and place. Denies SI/HI. Spent all day in room with exception of meals. Reg gait. Calm and compliant. Breath sounds clear. Reg HR auscultated. Color pink with brisk capillary refill and palpable peripheral pulses. Independent with voiding. Active bowel sounds over soft, rounded abdomen. Brown stool per toilet. Currently resting in room.
[2020-05-21 19:58] VITALS: BP 113/46
[2020-05-21 22:23] VITALS: BP 113/46
--- NOTE | 2020-05-22 03:10 | NUR ---
Assumed care of patient this pm shift. Patient in good spirits, calm and cooperative. Patient denies pain. Patient denies hi/si. Patient is alert and oriented x2 person, place. Patient takes medications whole as scheduled. Patients vital signs stable. No acute distress noted. Patient is considered a falls risk and has on a yellow shirt. We will continue to monitor per hospital policy.
[2020-05-22 07:33] VITALS: BP 143/54
--- NOTE | 2020-05-22 13:05 | H ---
[facility] [place] [address] [place] [address] HISTORY AND PHYSICAL Name: SHANE FIGUEROA Room #: 526B-B ADM IN M.R.#: [id number] Admission: 05/20/20 Attend Phys: Fitz Otoole DO Discharge: Date of : 35 Report #: [id number] THIS REPORT FOR: cc: Shane Holder James A. DO Kerstein, Andrew H. DO ~ CC: Fitz Holder DATE OF SERVICE: 05/20/2020 INPATIENT PSYCHIATRIC EVALUATION ATTENDING PSYCHIATRIST: Fitz Otoole DO. EMBOSSING CALENDER OPERATOR: Rasta Klein MD REASON FOR ADMISSION: Dementia with behavioral disturbance. SOURCES OF INFORMATION: Interview with his daughter and guardian; Kelsie, interview with the patient at bedside, Emergency Room records. HISTORY OF PRESENT ILLNESS: This is an 85-year-old male, retired commercial credit officer with a known history of major neurocognitive disorder. The patient was brought to the hospital by family after he refused to move out of his residence. His has been caring for him and moved to penitentiary environment. The patient refused to move, has a known history of dementia. Over the last day or two, the patient has made threatening remarks that he would harm family members including his daughter, who is now [facility] reported guardian. The patient in the ER stated he is not sure why he is here and is confused. He could not tell what year it is; the date; could not tell me what month it is. He does think Marcos Subramanian is the current Ballet Soloist. He did not know who the relative was that accompanied him to the ED. He stated that he lives with his at their home, refused to go to any sort of facility; states he is not sick. Family is unsure if the patient has been taking any medications appropriate at home. ADDITIONAL INFORMATION: Past medical history includes insulin-dependent diabetes mellitus, gout, hypertension, GERD, hyperlipidemia, history of MRSA infection. Cerebrovascular accident in 2016, left total hip replacement, multiple colonoscopies, EGDs. PAST SURGICAL HISTORY: Includes posterior neck cancer excised, cardiac stent in 2006, 2016 and 2018. PSYCHIATRIC HISTORY: Includes Alzheimer's dementia. [facility] [address] [place] [address] HISTORY AND PHYSICAL Name: SHANE FIGUEROA Room #: 526B-B ADM IN M.R.#: [id number] Admission: 05/20/20 Attend Phys: Fitz Otoole DO Discharge: Date of : 35 Report #: [id number] MEDICATIONS: Lipitor 40 mg p.o. daily, aspirin 81 mg p.o. daily. His insulin regimen does not appear to be reliable as it has 25 units of NPH in the morning and 12 units in the evening and Regular insulin 10 mg 3 times a day; colchicine p.r.n., lisinopril and omeprazole. I spoke with his daughter, Kelsie and she was not sure of his regimen, he has been compliant with. ALLERGIES: No known allergies. SOCIAL HISTORY: Denied tobacco, alcohol or recreational drug use history. REVIEW OF SYSTEMS: Not being able to be reliably obtained, although he denied being in pain. Weight 84.37 kilos, BMI 27.5. LABORATORY DATA: EKG was done, which showed a rate of 76 beats per minute; occasional premature atrial contractions, left axis. His QTc 432 ms . W[place] interval 166 milliseconds, QT 384, QTc is 432 milliseconds. PHYSICAL EXAMINATION: VITAL SIGNS: Today, pulse 90, respirations 16, BP 122/48, O2 sat 99%. The patient was afebrile. LABORATORIES: From the ER, hematology: H and H 13.1 and 37.2, white count is 7.6, platelet count 271. Chemistry: Sodium 136, potassium 4.2, chloride 103, bicarbonate 22, anion gap 11, BUN 17, creatinine 1.1, estimated GFR 64, glucose 229, 1705 yesterday. Repeat glucose 1131, today 239. Calcium 9.2, total bilirubin is 0.5, direct bilirubin 0.1, AST 15, ALT 13, alkaline phosphatase 197, total protein 8.2, albumin 3.8. Urinalysis showed trace protein, otherwise negative. COVID-19 PCR, neurology was negative for self and antigen of course was negative. MUSCULOSKELETAL: Normal gait and station. MENTAL STATUS EXAMINATION: This is a well-developed, somewhat frail-appearing, male, appearing at least stated age. Attention fair. Concentration limited. Speech: Normal rate, rhythm and tone. Thought process: Linear and goal directed. Thought content: Relative poverty of thought. No psychomotor agitation. No psychomotor retardation. Denied suicidal intent or plan. Denied homicidal intent or plan. Denied hopelessness, helplessness. Denied auditory, visual or tactile hallucinations. Denied flashbacks, nightmares. Memory not formally tested today, noted to be impaired. Insight limited. Judgment impaired. Fund of knowledge below average. [facility] [address] [place] [address] HISTORY AND PHYSICAL Name: SHANE FIGUEROA Room #: 526B-B ADM IN M.R.#: [id number] Admission: 05/20/20 Attend Phys: Fitz Otoole DO Discharge: Date of : 35 Report #: [id number] ADDITIONAL HISTORY: Born and raised in [place], [place]; bachelor's degree. 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. He has 3 biological kids; 1 adopted kid; his guardian is his daughter, Kelsie. He denies head injuries. Denies seizures. He denied a history of combat service in the . He was there after the [place] war. FORMULATION: An 85-year-old male, readmitted with major neurocognitive disorder, most likely Alzheimer's with possibly some vascular contribution. Dr. Klein noted he had a heavy remote alcohol use. PRIMARY CARE PHYSICIAN: Not known at the moment. 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 Number of medical comorbidities including the diabetes mellitus, hypertension, history of coronary artery disease, gout. PLAN: Evaluate, stabilize, and obtain collateral. Regarding the patient's medications, I spoke with the daughter about initiation of Depakote and antipsychotic. I think that is advisable at this point. I will go ahead and start him on Haldol 2.5 mg twice a day. I actually thought I had started him on Depakote ER, but it looks like I did not order it yet, so I will order that now to begin this evening. ESTIMATED LENGTH OF STAY: 10-14 days. STRENGTHS: He is insured, has a guardian, family participation. WEAKNESSES: Advancing age, having a major neurocognitive disorder, multiple morbidities. At least 45 minutes spent on case today. <ELECTRONICALLY SIGNED> By: Fitz Otoole DO 05/22/20 1305 1615 1727 Fitz Otoole DO /nt
--- NOTE | 2020-05-22 14:22 | NUR ---
PATIENT WAS IN BED ASLEEP WHEN CARE ASSUMED. PATIENT IS ALERT, AND ORIENTED X 1-2, HE IS FORGETFUL, AND CONFUSED AT TIMES, FINDS IT DIFFICULT TO LOCATE HIS ROOM AT TIMES. PATIENT AMBULATES WITH UNSTEADY GAIT, CHOOSE NOT TO USE WALKER FOR AMBULATION. BLOOD SUGAR BEFORE BREAKFAST WAS 121, NO INSULIN GIVEN, AT LUNCH, BLOOD SUGAR WAS 282, 6 UNITS INSULIN GIVEN PER SLIDING SCALE ORDER, NOS SIGN AND SYMPTOMS OF HYPER/HYPOGLYCEMIA NOTED. PATIENT TOOK ALL MEDICATION WHOLE WITHOUT DIFFICULTY. PATIENT IS EATING MEALS, AND DRINKING FLUID WELL. PATIENT DENIES SUICIDAL/HOMICIDAL IDEATION. NO AGITATION OR AGGRESSIVE BEHAVIOR NOTED. PATIENT REQUIRES CONSTANT REDIRECTION. AFFECT IS FLAT, AND BLUNTED, MOOD IS DEPRESSED. NO SIGN OF ACUTE DISTRESS NOTED AT THIS TIME, WILL CONTINUE TO REDIRECT, AND MONITOR FOR SAFETY.
--- NOTE | 2020-05-22 16:19 | NUR ---
JOESPH and Dr. Otoole spoke to Michelle regarding discharge recommendations for patient. Dr. Otoole recommends pt be placed in [place] memory care. Dtr reports pt's (her stepmother) also has dementia (not as severe) and recently moved to [place] at [facility]. She will look into pt and his being able to be placed together there. Michelle will notify JOESPH with her findings. Michelle informed that she is DPOA for healthcare and her niece, Naomi Guzmán is DPOA for financial decisions [phone]. JOESPH later received a call from Naomi wanting to confirm the information she was provided by her aunt Michelle. She states the family is pretty emotional right now and she is trying to direct family conversations related to the decisions that need to be made for patient and his . JOESPH will continue to follow during hospitalization.
--- NOTE | 2020-05-22 17:45 | NUR ---
JOESPH informed Michelle that two pts on the unit tested positive for COVID and have been evacuated from the unit. JOESPH further explained pt tested negative and will continue to be monitored until discharge. Pt will receive another COVID test prior to discharge. Michelle thanked JOESPH and expressed no concern at this time. JOESPH team will continue to follow.
[2020-05-22 19:38] VITALS: BP 140/60
--- NOTE | 2020-05-23 03:33 | NUR ---
Assumed care of pt @ 1900. Pt calm et cooperative this shift. Took medications whole without difficulty. Insulin NPH 10units et Insulin Lispro 3units given for blood sugar of 199 per sliding scale. Ambulates with assistance of walker with slightly unsteady gait. Isolated in room most of shift. VSWNL. Health assessment with no abnormalities other than previously noted. Denies SI/HI/AVH at present time. Currently resting in bed with eyes closed. Will continue to monitor per protocol.
[2020-05-23 07:23] VITALS: BP 132/55
[2020-05-23 08:30] VITALS: BP 132/55
--- NOTE | 2020-05-23 08:40 | NUR ---
PT SITTING IN DINING ROOM EATING BREAKFAST. PT DENIES ANY PAIN. PT TOOK MEDICATION WITHOUT ANY ISSUES. PT USING WALKER THIS AM WITH STAND-BY ASSIST. PT LUNGS CLEAR. PT CALM AND COOROPERATIVE.
--- NOTE | 2020-05-23 12:00 | NUR ---
PT WAS SITTING TO EAT THEN GOT UP AND STARTED WALKING WITH WALKER. PT NEEDED TO USE BATHROOM. PT DIDN'T HAVE A BRIEF ON AND REFUSED TO WEAR ONE. PT HAS BEEN CONT.
--- NOTE | 2020-05-23 15:44 | NUR ---
PT TRYING TO GET OUT FRONT DOOR, ASKED PT WHAT HE WAS DOING. HE SAID HE WAS GETTING TO HIS ROOM. ASSISTED PT TO HIS ROOM. PT VOIDED FIRST AND THEN WENT TO BED, BED ALARM ACTIVATED.
[2020-05-23 19:38] VITALS: BP 109/47
--- NOTE | 2020-05-24 04:20 | NUR ---
Assumed care of pt @ 1900. Pt calm et cooperative this shift. Took medications whole without difficulty. Ambulates with assistance of walker with steady gait. VSWNL. Health assessment with no abnormalities at present time. Isolated in room most of shift. Denies SI/HI/AVH at present time. Currently resting in bed with eyes closed. Will continue to monitor per protocol.
[2020-05-24 07:51] VITALS: BP 127/62
--- NOTE | 2020-05-24 10:15 | NUR ---
ASSUMED CARE AT 0700 THIS MORNING. PT. UP DRESSED AND ON THE UNIT, SITTING IN A CHAIR. HE SAT BY HIMSELF, ISOLATIVE, MOST OF THE TIME. HE WILL INTERACT UPON APPROACH ONLY. HE HAS BEEN SITTING WITH HIS EYES CLOSED AT TIMES. HE ATE WELL AND TOOK HIS MORNING MEDICATIONS WITHOUT PROBLEMS NOTED. NOTED A PREVIOUS NOTE STATING PT. WALKED WITH A WALKER, BUT PT. DENIES NEEDING ONE AND HAS NONE WITH HIM THIS MORNING. WILL MONITOR HIS GAIT FOR STEADINESS. DOES DON A YELLOW T-SHIRT AND SOX THOUGH.
[2020-05-24 10:38] VITALS: BP 127/62
[2020-05-24 19:28] VITALS: BP 112/64
[2020-05-24 21:36] VITALS: BP 112/64
--- NOTE | 2020-05-25 02:56 | NUR ---
Assumed care of patient this pm shift. Patient calm and cooperative in good spirits. Patient denies pain. Patient denies hi/si. Patient is adherent with scheduled meds and takes them whole with thin fluids. Patient is considered a falls risk and has on a yellow shirt. Patient ambulates with a walker. No acute distress noted at this time. Vital signs are stable. Patient is alert and oriented to self and place. We will continue to monitor per hospital policy.
[2020-05-25 07:59] VITALS: BP 128/81
[2020-05-25 14:18] VITALS: BP 128/81
--- NOTE | 2020-05-25 14:26 | NUR ---
ASSUMED CARE AT 0700 IN THE MORNING. PT. WAS IN BED, BUT GOT UP FOR BREAKFAST, ASSISTED BY NURSING STAFF. PT. IS WAKE, ALERT. HE CONTINUES TO BE CONFUSED. HE IS ISOLATIVE TO HIS ROOM BETWEEN MEALS. HE WILL DOES ATTEND GROUPS OFFERED. REVIEWED HIS LAB WITH DR. BALLARD TODAY. TO INCREASE HIS DIVALPROEX DUE TO LAB RESULTS. CALLED FOR UPDATE AND SPOKE WITH THE PATIENT. IS EATING WELL AT MEALS.
[2020-05-25 20:04] VITALS: BP 109/76
[2020-05-25 22:46] VITALS: BP 109/76
--- NOTE | 2020-05-26 01:36 | NUR ---
Assumed care of patient this pm shift. Patient in good spirits, calm and cooperative. Patient denies pain. Patient denies hi/si. Patient takes medications whole with thin fluids. Patient is alert and oriented to self and situation. Patient is considered a falls risk and ambulates with a walker. Patients assessment shows no signs of acute distress. Vital signs stable. Patient did not voice any new concerns this evening. A covid test was done by RN and sent to lab. We will continue to monitor per hospital policy.
[2020-05-26 08:51] VITALS: BP 137/63
--- NOTE | 2020-05-26 13:39 | NUR ---
Pt completed a virtual assessment with Finesse Sethi of [facility]
--- NOTE | 2020-05-26 13:53 | NUR ---
JOESPH spoke with Finesse Sethi at [facility]. They are willing to accept the Pt. Concerns that Finesse had were the sliding scale insulin and the Haldol. Finesse asked if it was possible for the Pt to be on scheduled dose of insulin or go to SNF to get the this issue under control. JOESPH will talk to Dr. Long concerning the matter
--- NOTE | 2020-05-26 16:41 | NUR ---
Assumed care of patient at 0700. Alert and oriented to person. Pleasant when approached. Denies pain or discomfort. No cough. Respirations regular. Breath sounds clear. Remaining in room. Medicvation adherent. No complaints. Remains on Fall precautions. Use of walker encouraged. Up to the bathroom.
[2020-05-26 19:34] VITALS: BP 128/68
--- NOTE | 2020-05-27 05:38 | NUR ---
05-26-20 CARE TRANSFERRED 1930 PT AAOX1, VSS, RR EVEN AND NONLABORED ON RA. PT DENIES ANY PAIN AND SI/HI. PT WAS REPOSITION IN BED FOR COMFORT. DURING MEDICATION ADMIN. PT HAD NO DIFFICULTIES. PT HAS REMAINED CALM AND COOPERATIVE. ZERO S/S OF ACUTE DISTRES NOTED, PT WILL CONTINUE TO BE MONITOR PER [facility] PROTOCOL.
[2020-05-27 14:21] VITALS: BP 132/71
--- NOTE | 2020-05-27 16:42 | NUR ---
SW send referral to [facility] for SNF.
--- NOTE | 2020-05-27 17:32 | NUR ---
Assumed care of patient at 0700. Up in room ad niharika with walker. Remains on Fall precautions. Eating independently. Alert and oriented to person, place situation. Soke wot family on the phone. Smiles easily. Denies pain or discomfort. Pleasant when approached. No complaints.
[2020-05-27 19:30] VITALS: BP 120/57
[2020-05-27 23:48] VITALS: BP 132/71
--- NOTE | 2020-05-28 02:46 | NUR ---
Assumed care of patient this pm shift. Patient in good spirits, pleasantly confused. Patient is alert and oriented to self only. Patients affect mildly blunted. Patient takes medications whole with thin fluids. Patient ambulates via walker and is considered a falls risk. Patients vital signs stable. We will continue to monitor via hospital policy.
[2020-05-28 07:00] VITALS: BP 128/63
[2020-05-28 13:49] LABS: HEMATOCRIT 38.4 % (42.0-52.0); MCH 31.7 pg (26.0-34.0); MCHC 33.9 g/dL (28.0-37.0); MCV 93.4 fL (80.0-100.0); RBC 4.12 mil/uL (4.50-6.00); RDW 13.7 % (10.5-14.5); WBC 3.5 thou/uL (4.0-11.0)
[2020-05-28 13:55] LABS: ALBUMIN 3.4 g/dL (3.4-5.0); CALCIUM 8.9 mg/dL (8.5-10.1); CREATININE 1.4 mg/dL (0.7-1.3); MAGNESIUM 2.1 mg/dL (1.8-2.4); POTASSIUM 4.5 mmol/L (3.5-5.1); TOTAL BILIRUBIN 0.3 mg/dL (0.2-1.0); TOTAL PROTEIN 7.7 g/dL (6.4-8.2)
--- NOTE | 2020-05-28 16:33 | NUR ---
0700 ASSUMED CARE OF PATIENT, PATIENT IN BED AT THAT TIME. PATIENT EATS BREAKFAST IN ROOM, DENIES NEEDS AT THAT TIME. MEDICATION TAKEN CRUSHED IN PUDDING WITHOUT DIFFICULTY. PATIENT AMB TO DAYROOM FOR LUNCH. AT 1400 PATIENT FORGETFUL STATING HE HAS NOT HAD LUNCH YET. PT ATE 25% OF LUNCH. STOVE BOTTOM WORKER OFFERED SNACK, PT REFUSED. PATIENT UP AMB IN CHAVEZ WITH WALKER WITH STEADY GAIT. PATIENT CONFUSED REQUESTING TO GET OUT TO GO HOME. 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 i NEED TO LEAVE NOW". AFTER ATTEMPTING TO ORIENT PATIENT , PATIENT SAY HE WILL JING ALL OF US IN THIS PLACE. PATIENT IS CALM AND OCCATIONALLY RAISES VOICE WHEN WANTING TO LEAVE. PATIENT WAS OBSERVED AT EXIT DOORS ATTEMPTING TO OPEN DOOR. WILL CONTINUE TO OBSERVE
--- NOTE | 2020-05-28 16:59 | NUR ---
SW received a call from Mitali with [facility] stating that pt has been accepted clinically; they are awaiting his financials to be accepted. SW team will continue to follow pt during his stay on this unit.
[2020-05-28 21:49] VITALS: BP 127/70
--- NOTE | 2020-05-29 01:15 | NUR ---
Assumed care on 05/28/20 @ 19:30, in his room seated on the bed. Moves about his room independently. Compliant with medication administration. A&Ox2-3. CABAZON and has difficulty understanding. Retired to bed and is in bed with eyes closed and respirations even and unlabored at this writing. Will observe and round as per unit protocol.
[2020-05-29 01:21] VITALS: BP 127/70
--- NOTE | 2020-05-29 08:00 | NUR ---
Assumed care 0700. Does not have much of an appetite. Does know why. Is very hard of hearing. perplexed.
[2020-05-29 08:45] VITALS: BP 173/68
--- NOTE | 2020-05-29 09:39 | NUR ---
JOESPH recieved VM from Finesse at [facility]. Finesse informed that the facility would required 2 negative covid test prior to admissions. Finesse left a cell number she could be reached at .
[2020-05-29] MEDS ORDERED: DIVALPROEX SOD500 M1 PO (11:07)
[2020-05-29] MEDS ORDERED: HUMULIN N100 UNIT/1 SUBQ (11:07)
--- NOTE | 2020-05-29 12:23 | NUR ---
JOESPH contacted Kelsie and explained to her that [facility] would like to take pt for rehab; this is also what Tracy Hidalgo wants. Kelsie okayed for this to happen. JOESPH team will continue to follow pt during his stay on this unit.
--- NOTE | 2020-05-29 13:35 | NUR ---
Patient quiet, compliant with isolating to room. Patient stated he did not have much of a appetite today. No voiced complaints. No temp. elevation or evident signs of Covid-19 virus. Denies pain. No indicators or voiced SI/HI/AH/VH. Poverty of thought and paucity of conversation. Is looking forward to discharge. Wheelchair transport with two attendants arrived on unit at 1330 for discharge. OK for discharge obtained on the phone from granddaughter Naomi-conservator who is in agreement with her mother, patient's daughter. Naomi will call before coming to the ER to apple picker patient's valuables. Pt. left unit at 1345 with belongings and and packet of papers.
--- NOTE | 2020-05-29 14:22 | NUR ---
SW D/C NOTE JOESPH sent via encrypted email to Mitali Lang with [facility] a copy of pt's DA124 C and discharge docs. SW will file these docs in pt's file. No other needs for SW team to address at this time.
--- NOTE | 2020-05-29 14:30 | NUR ---
Approximately Naomi was notified pt. left 1345 for [facility]. She was requested to call this unit so RN could meet her in ER to pharmacy picking technician the belongings for Gonzalez. Report was called to [facility] Jo nurse. Stoneworking Sander at [facility] was later given message to give to his nurse notifying her (nurse) that pharmacy could not accept Taylor EmileeEddie nurse's phoning in medications for this patient due to the facility not having admitted patient yet to the pharmacy system and the facility needs to fax over the med orders to pharmacy.
--- NOTE | 2020-05-31 21:05 | D ---
[facility] [place] [address] [place] [address] DISCHARGE SUMMARY Name: SHANE FIGUEROA Room #: 526B-B DIS IN M.R.#: [id number] Admission: 05/20/20 Attend Phys: Fitz Otoole DO Discharge: 05/29/20 Date of : 35 Report #: [id number] THIS REPORT FOR: cc: Shane Holder James A. DO Kerstein, Andrew H. 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 MEDICAL COMORBIDITIES: Include recent symptomatic COVID-19 positive, history of CVA, diabetes mellitus type 2, coronary artery disease, history of hypertension, GERD, peptic ulcer disease, history of upper GI bleed, hyperlipidemia, history of gout, he had no acute attacks on the unit. DISCHARGE PLAN: The patient is discharging to [facility] for [facility] stay for his COVID-19 status and towards eventual placement at [facility] for long-term memory care. DISCHARGE MEDICATIONS: Depakote ER 1500 mg p.o. at bedtime, did a level early this morning and it was 98, which is higher than it would be a trough, but given the patient is not showing signs of Depakote toxicity and it is quite manageable now, we will keep it at the current dose. He had previously been at Depakote level 17 at 750 mg ER a day. for Diabetes: NPH insulin 7 units subcutaneous b.i.d., scheduled recommended 1800 calorie diabetic diet, aspirin 81 mg oral daily for heart protection, cholecalciferol 5000 international 25 mcg p.o. daily, cyanocobalamin 1000 mcg p.o. daily for supplementation, omeprazole 20 mg p.o. daily. We were not treating him with atorvastatin or lisinopril; those may be restarted at the discretion of the [facility] medical review specialist attending him given his advanced stage of dementia. LABORATORY DATA: At the time of discharge on 05/28/2020, white count 3.5, H and [address] [address] DISCHARGE SUMMARY Name: SHANE FIGUEROA Room #: 526B-B [facility] IN M.R.#: [id number] Admission: 05/20/20 Attend Phys: Fitz Otoole DO Discharge: 05/29/20 Date of : 35 Report #: [id number] H 13.0 and 38.4, platelet count 175. Chemistries on 05/28/2020, sodium 134, potassium 4.5, bicarbonate 23, anion gap 11, BUN 35, creatinine 1.4, lisinopril was being held for his ERIK, GFR 48, glucose is 203 that was health technical writer on 05/28/2020. Calcium 8.9, magnesium 2.1 on 05/28/2020. AST 33, ALT 34, alkaline phosphatase 193, slightly elevated. Other laboratories this admission, COVID-19 was positive on 05/25/2020 and negative on 05/19/2020 x 2. Toxicology this admission was just the Depakote level. Looks like urinalysis this admission was grossly negative some trace protein. Again, the patient will see psychiatric medical care at the [facility]. REASON FOR ADMISSION: Back on or so May is as follows. An 85-year-old male brought to the Emergency Room by family. His daughter, Kelsie recently obtained guardianship. His had a much milder dementia and had been moved to an assisted living facility. The patient refused to go. He was agitated, allegedly made a threat against his family members, so he was admitted to Geriatric Psychiatry Unit. HOSPITAL COURSE: The patient was initially started on Haldol 2.5 mg twice a day to bridge the gap with Depakote as therapeutic as stated above. Initial Depakote level was subtherapeutic. Unfortunately, there had been an outbreak detected in the [facility] while the patient was there. He was negative initially, but on retest he was positive. His daughter, Kelsie, was counseled about the situation extensively and social work was able to get him a skilled stay for the COVID-19 positive as a bridge to long-term memory care. PHYSICAL EXAMINATION: VITAL SIGNS: On the day of discharge is as follows: Temperature 36.3, pulse 71, respirations 18, BP 172/60, O2 sat 92%. MUSCULOSKELETAL: Gait not tested. He was seated when I saw him by a televideo device. MENTAL STATUS EXAMINATION: This is a well-developed, fairly nourished male. BMI 25.5. Appearing stated age. He does wear glasses. Attention is limited. Concentration is limited. mood/affect- congruent euthymic Speech is normal in rate, volume and tone. Thought process: Linear and limited. Thought content: Relative poverty of thought. No psychomotor agitation or psychomotor retardation. Denied SI or HI. Denied auditory, visual, or tactile hallucinations. Memory has not been formally tested today. Insight limited. Judgment impaired. Fund of knowledge below average at this point. [facility] [address] [place] [address] DISCHARGE SUMMARY Name: CAROLINASHANE Room #: 526B-B DIS IN M.R.#: [id number] Admission: 05/20/20 Attend Phys: Fitz Otoole DO Discharge: 05/29/20 Date of : 35 Report #: [id number] PROGNOSIS: For this patient is guarded given his age of 85, having at least moderately advanced neurodegenerative disorder. <ELECTRONICALLY SIGNED> By: Fitz Otoole DO 05/31/20 2105 1845 08 Fitz Otoole DO /nt
== END 2020-05-29 13:30 | DRG 56 ==
LOC: ER 16:35 → SBH 05-20 10:11 → EROBS 05-20 10:11 → SBH 05-20 10:11
PROVIDERS: Emergency Medicine; Internal Medicine; ADMIT Psychiatry & Neurology Psychiatry; ATTEND Psychiatry & Neurology Psychiatry
DX: G30.9 Alzheimer's disease, unspecified (principal); F01.51 Vascular dementia, unspecified severity, with behavioral disturbance; U07.1 COVID-19; F02.81 Dementia in other diseases classified elsewhere, unspecified severity, with behavioral disturbance; G93.40 Encephalopathy, unspecified; E11.9 Type 2 diabetes mellitus without complications; M10.9 Gout, unspecified; I10 Essential (primary) hypertension; E78.5 Hyperlipidemia, unspecified; K21.9 Gastro-esophageal reflux disease without esophagitis; I25.10 Atherosclerotic heart disease of native coronary artery without angina pectoris; Z96.642 Presence of left artificial hip joint; Z85.828 Personal history of other malignant neoplasm of skin; Z95.5 Presence of coronary angioplasty implant and graft; Z86.73 Personal history of transient ischemic attack (TIA), and cerebral infarction without residual deficits; Z79.82 Long term (current) use of aspirin; Z79.4 Long term (current) use of insulin; Z79.899 Other long term (current) drug therapy; Z87.11 Personal history of peptic ulcer disease; Z88.0 Allergy status to penicillin
CPT/HCPCS: 10880